=== PATIENT | female | born 1990 | race Hispanic/Latino ===

== ENCOUNTER 2022-04-18 15:10 | Emergency (ER) | payer SELFPAY ==
[2022-04-18 15:58] LABS: Absolute Lymphocytes (CBC) 1.3 K/uL (0.7-4.9); Hematocrit 37.3 % (36.0-45.0); Lymphocytes % 18.2 % (15.3-44.8); MCV 90.5 fL (80-100); RBC Red Blood Cell Count 4.12 M/uL (3.86-4.86)
[2022-04-18 16:19] LABS: BUN Blood Urea Nitrogen 9 mg/dL (7-18); Bicarbonate 24 mmol/L (21-32); Glomerular Filtration Rate 104 ml/min (=/>90); Glucose Level 81 mg/dL (74-106); Potassium 2.9 mmol/L (3.5-5.1); Sodium Level 138 mmol/L (136-145); Troponin High Sensitivity < 3.0 pg/mL (<58.9)
--- NOTE | 2022-04-18 16:53 | RAD REPORT ---
EXAM DESCRIPTION: Eve Single View04/18/2022 4:30 pm CLINICAL HISTORY: Palpitations COMPARISON: none FINDINGS: The lungs appear clear of acute infiltrate. The heart is normal size IMPRESSION: No acute abnormalities displayed
[2022-04-18] MEDS ORDERED: POTASSIUM CL SA 10 MEQ TAB PO ONE (17:11)
[2022-04-18] MEDS ORDERED: POTASSIUM 25 MEQ EFFERV TAB ONE (17:12)
--- NOTE | 2022-04-18 18:40 | EDPHYS ---
Physician Documentation [facility] Name: Benita Cooper Age: 31 yrs Sex: Female : 1990 Arrival Date: 04/18/2022 Time: 15:11 Bed 4 Private MD: ED Physician Shakeel Weir HPI: 04/18 15:42 This 31 yrs old Female presents to ER via Ambulatory with complaints of rapid ms3 heart rate, shaky, Near Syncope. 15:42 The patient has experienced near-syncope. Onset: The symptoms/episode began/occurred ms3 acutely, 30 minute(s) ago. Duration: This was a single episode. Associated injury: The patient did not suffer any apparent associated injury. Associated signs and symptoms: Pertinent positives: shortness of breath, tingling. Current symptoms: shortness of breath, chest pain. 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 - Social history:: Smoking status: Patient denies any tobacco usage or history of. ROS: 15:42 Constitutional: Negative for fever, and chills. ENT: Negative for injury, pain, and ms3 discharge, Neck: Negative for injury, pain, and swelling. 15:42 Abdomen/GI: Negative for abdominal pain, nausea, vomiting, diarrhea, and constipation, MS/Extremity: Negative for injury and deformity, Skin: Negative for injury, rash, and discoloration, Neuro: Negative for headache, weakness, numbness, tingling. Psych: Negative for depression, anxiety, suicide ideation, homicidal ideation, and hallucinations. 15:42 Cardiovascular: Positive for chest pain. 15:42 Respiratory: Positive for shortness of breath. 15:42 All other systems are negative. Exam: 15:41 ECG was reviewed by the Attending Physician. ms3 15:42 Constitutional: This is a well developed, well nourished patient who is awake, alert, ms3 and in no acute distress. Head/Face: Normocephalic, atraumatic. Eyes: Pupils equal round and reactive to light, extra-ocular motions intact. Lids and lashes normal. Conjunctiva and sclera are non-icteric and not injected. Periorbital areas with no swelling, redness, or edema. Neck: Trachea midline, no cervical lymphadenopathy. Supple, full range of motion without nuchal rigidity, or vertebral point tenderness. No Meningismus. Chest/axilla: Normal chest wall appearance and motion. Nontender with no deformity. Respiratory: Lungs have equal breath sounds bilaterally, clear to auscultation and percussion. No rales, rhonchi or wheezes noted. No increased work of breathing, no retractions or nasal flaring. Abdomen/GI: Soft, non-tender, with normal bowel sounds. No distension or tympany. No guarding or rebound. No evidence of tenderness throughout. Skin: Warm, dry with normal turgor. Normal color with no rashes, no lesions, and no evidence of cellulitis. MS/ Extremity: Pulses equal, no cyanosis. Neurovascular intact. Full, normal range of motion. Neuro: Awake and alert, GCS 15, oriented to person, place, time, and situation. Cranial nerves II-XII grossly intact. Motor strength 5/5 in all extremities. Sensory grossly intact. Cerebellar exam normal. Normal gait. Psych: Awake, alert, with orientation to person, place and time. Behavior, mood, and affect are within normal limits. 15:42 Cardiovascular: Rate: tachycardic, Rhythm: regular, Pulses: no pulse deficits are appreciated, Heart sounds: normal, Edema: is not appreciated. Vital Signs: 15:15 BP 110 / 93; Pulse 108; Resp 18 S; Temp 100.8(O); Pulse Ox 99% on R/A; Weight 86 kg aa5 (R); Height 5 ft. 0 in. (152.40 cm) (R); 15:20 BP 110 / 93 Supine; Pulse 104; Resp 16 S; Temp 100.8(T); Pulse Ox 99% on R/A; ha1 17:13 BP 115 / 81; Pulse 87; Resp 16 S; Temp 99.9(O); Pulse Ox 99% on R/A; ha1 18:00 BP 120 / 76; Pulse 85 LA; Resp 16; Temp 99.8(O); Pulse Ox 100% on R/A; ha1 15:15 Body Mass Index 37.03 (86.00 kg, 152.40 cm) aa5 MDM: 15:29 Patient medically screened. ms3 18:52 Differential Diagnosis: cardiac arrhythmia, COVID vs Flu vs SVT. Data reviewed: vital ms3 signs, nurses notes, lab test result(s), EKG, radiologic studies, and as a result, I will discharge patient. Data interpreted: senior cytogenetics laboratory director: rate is 93 beats/min, rhythm is normal sinus rhythm, regular, with no ectopy, Interpretation: normal rate, normal rhythm, Pulse oximetry: on room air is 100 %. Interpretation: normal. Counseling: I had a detailed discussion with the patient and/or guardian regarding: the historical points, exam findings, and any diagnostic results supporting the discharge/admit diagnosis, lab results, radiology results, the need for outpatient follow up, to return to the emergency department if symptoms worsen or persist or if there are any questions or concerns that arise at home. ED course: Discussed chest x-ray, labs, EKG, physical exam findings with patient. Patient to follow-up with primary care physician in 2 to 3 days. Patient understands and agrees with plan. All questions were answered. Return precautions discussed include worsening symptoms, or any other concerns. On reevaluation patient is improved, alert and oriented x4, no apparent distress, nontoxic, ambulatory in emergency department.. 04/18 15:29 Order name: Basic Metabolic Panel; Complete Time: 17:02 ms3 04/18 15:29 Order name: CBC with Diff; Complete Time: 17:02 ms3 04/18 15:29 Order name: D-Dimer; Complete Time: 17:02 ms3 04/18 15:29 Order name: Troponin HS; Complete Time: 17:02 ms3 04/18 16:04 Order name: Flu; Complete Time: 17:02 ha1 04/18 16:04 Order name: COVID-19 SARS RT PCR (Document "Date of Onset" if Symptomatic); Complete ha1 Time: 17:53 04/18 15:29 Order name: XRAY Chest (1 view); Complete Time: 17:02 ms3 04/18 15:29 Order name: EKG; Complete Time: 15:30 ms3 04/18 15:29 Order name: Cardiac monitoring; Complete Time: 15:41 ms3 04/18 15:29 Order name: EKG - Nurse/Tech; Complete Time: 15:40 ms3 04/18 15:29 Order name: IV Saline Lock; Complete Time: 15:51 ms3 07 15:29 Order name: Labs collected and sent; Complete Time: 15:52 ms3 04/18 15:29 Order name: O2 Per Protocol; Complete Time: 15:52 ms3 04/18 15:29 Order name: O2 Sat Monitoring; Complete Time: 15:52 ms3 EC:41 Rate is 116 beats/min. Rhythm is regular. QRS [place] is Normal. MI interval is normal. QT ms3 interval is normal. Clinical impression: Sinus tachycardia. Interpreted by me. Reviewed by me. Administered Medications: 17:13 Drug: Potassium Chloride 40 mEq Route: PO; aa5 19:05 Follow up: Response: No adverse reaction ha1 17:13 Drug: Potassium Effervescent Tablet 25 mEq Route: PO; aa5 19:05 Follow up: Response: No adverse reaction ha1 Disposition Summary: 04/18/22 18:40 Discharge Ordered Location: Home ms3 Problem: new ms3 Symptoms: are unchanged ms3 Condition: Stable ms3 Diagnosis - Hypokalemia ms3 - Fever, unspecified ms3 - SARS-associated coronavirus as the cause of diseases classified elsewhere ms3 Followup: ms3 - With: - When: 2 - 3 days - Reason: Re-evaluation by your physician Discharge Instructions: - Discharge Summary Sheet ms3 - Fever, Adult ms3 - Hypokalemia ms3 Forms: - Medication Reconciliation Form ms3 - Thank You Letter ms3 - Antibiotic Education ms3 - Prescription Opioid Use ms3 Signatures: Dispatcher [employer] Sierra Torres, RN RN aa5 Shakeel Weir DO DO ms3 Heather Chandler RN ha1
--- NOTE | 2022-04-18 18:40 | ER ---
Nurse's Notes [facility] Name: Benita Cooper Age: 31 yrs Sex: Female : 1990 Arrival Date: 04/18/2022 Time: 15:11 Bed 4 Private MD: Diagnosis: Hypokalemia;Fever, unspecified;SARS-associated coronavirus as the cause of diseases classified elsewhere Presentation: 04/18 15:15 Chief complaint: Patient states: heart palpitations, SOB, left sided chest pain with aa5 left arm tingling that began 30-40 minutes ago. 15:15 Coronavirus screen: shortness of breath. Ebola Screen: No symptoms or risks identified aa5 at this time. Initial Sepsis Screen: Does the patient meet any 2 criteria? HR > 90 bpm. Does the patient have a suspected source of infection? No. Patient's initial sepsis screen is negative. Risk Assessment: Do you want to hurt yourself or someone else? Patient reports no desire to harm self or others. Onset of symptoms was April 18, 2022. 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 - Social history:: Smoking status: Patient denies any tobacco usage or history of. Screenin:20 Abuse screen: Denies threats or abuse. Nutritional screening: No deficits noted. ha1 Tuberculosis screening: No symptoms or risk factors identified. Fall Risk None identified. Assessment: 15:20 General: Appears comfortable, Behavior is calm, Reports chills for 12-24 hours, fever ha1 for 12-24 hours. 15:20 Pain: Denies pain. Complains of pain in anterior aspect of left upper chest Pain ha1 radiates to left arm Pain currently is 7 out of 10 on a pain scale. Quality of pain is described as pressure, squeezing, Pain began gradually, gets worst when walking Is intermittent, Alleviated by walking Aggravated by sitting Noted to be Also complains of decreased appetite, shortness of breath. 15:20 Neuro: Level of Consciousness is awake, alert, obeys commands, Oriented to person, ha1 place, time, situation, Intern Architect are equal bilaterally Moves all extremities. Full function Gait is steady, Speech is normal, Facial symmetry appears normal, Pupils are PERRLA, Reports. 15:20 Cardiovascular: Heart tones S1 S2 present Capillary refill < 3 seconds Patient's skin ha1 is warm and dry. Pulses are all present. Rhythm is sinus rhythm Chest pain is located in anterior. 15:20 Respiratory: Airway is patent Breath sounds are clear bilaterally. Onset: The ha1 symptoms/episode began/occurred the patient has mild shortness of breath. GI: No signs and/or symptoms were reported involving the gastrointestinal system. 15:20 : No signs and/or symptoms were reported regarding the genitourinary system. ha1 15:20 EENT: No signs and/or symptoms were reported regarding the EENT system. Derm: Skin is ha1 intact, is healthy with good turgor, Skin is dry, Skin is pink, warm \T\ dry. Reports tingling, at left arm. Musculoskeletal: Capillary refill < 3 seconds, Range of motion: intact in all extremities, 16:20 Reassessment: Patient and/or family updated on plan of care and expected duration. Pain ha1 level reassessed. Patient is alert, oriented x 3, equal unlabored respirations, skin warm/dry/pink. Patient denies pain at this time. 17:13 Reassessment: Patient is alert, oriented x 3, equal unlabored respirations, skin aa5 warm/dry/pink. 19:05 Reassessment: Patient is alert, oriented x 3, equal unlabored respirations, skin ha1 warm/dry/pink. Vital Signs: 15:15 BP 110 / 93; Pulse 108; Resp 18 S; Temp 100.8(O); Pulse Ox 99% on R/A; Weight 86 kg aa5 (R); Height 5 ft. 0 in. (152.40 cm) (R); 15:20 BP 110 / 93 Supine; Pulse 104; Resp 16 S; Temp 100.8(T); Pulse Ox 99% on R/A; ha1 17:13 BP 115 / 81; Pulse 87; Resp 16 S; Temp 99.9(O); Pulse Ox 99% on R/A; ha1 18:00 BP 120 / 76; Pulse 85 LA; Resp 16; Temp 99.8(O); Pulse Ox 100% on R/A; ha1 15:15 Body Mass Index 37.03 (86.00 kg, 152.40 cm) aa5 ED Course: 15:11 Patient arrived in ED. am2 15:15 Arm band placed on Patient placed in an exam room, on a stretcher. aa5 15:16 Shakeel Weir DO is Attending Physician. ms3 15:20 Patient has correct armband on for positive identification. Placed in gown. Bed in low ha1 position. Call light in reach. Side rails up X2. 15:26 Triage completed. aa5 15:26 EKG done, by ED staff, reviewed by Shakeel Weir DO. 3 15:35 No provider procedures requiring assistance completed. Initial lab(s) drawn, by az, ha1 sent to lab. Inserted saline lock: 20 gauge in right antecubital area, using aseptic technique. Blood collected. 15:51 Heather Chandler RN is Primary Nurse. ha1 16:32 XRAY Chest (1 view) In Process Unspecified. EDMS 18:40 Juan Murdock DO is Referral Physician. ms3 19:02 IV discontinued, intact, bleeding controlled, No redness/swelling at site. Pressure ha1 dressing applied. Administered Medications: 17:13 Drug: Potassium Chloride 40 mEq Route: PO; aa5 19:05 Follow up: Response: No adverse reaction ha1 17:13 Drug: Potassium Effervescent Tablet 25 mEq Route: PO; aa5 19:05 Follow up: Response: No adverse reaction ha1 Medication: 19:05 VIS not applicable for this client. ha1 Outcome: 18:40 Discharge ordered by . ms3 19:05 Patient left the ED. ha1 19:05 Discharged to home ambulatory. ha1 19:05 Condition: stable 19:05 Discharge instructions given to patient, Instructed on discharge instructions, follow up and referral plans. Demonstrated understanding of instructions, follow-up care. Signatures: Dispatcher [employer] EDMS Sierra Morillo RN RN aa5 Jossie Morrissey am2 Giulia Camacho 3 Shakeel Weir DO DO ms3 Heather Chandler RN RN [facility] Corrections: (The following items were deleted from the chart) 15:27 15:15 Initial Sepsis Screen: Does the patient meet any 2 criteria? No. Patient's aa5 initial sepsis screen is negative. Does the patient have a suspected source of infection? No. Patient's initial sepsis screen is negative. aa5 15:57 15:15 Pulse 108bpm; Resp 18bpm; Spontaneous; Pulse Ox 99% RA; aa5 aa5 16:42 16:29 Neuro: Level of Consciousness is awake, alert, obeys commands, Oriented to ha1 person, place, time, situation, Intern Architect are equal bilaterally Moves all extremities. Full function Gait is steady, Speech is normal, Facial symmetry appears normal, Pupils are PERRLA, Reports ha1 17:44 15:20 Pain: Denies pain. ha1 ha1 18:37 17:13 BP 115 / 81; Pulse 87bpm; Resp 16bpm; Spontaneous; Pulse Ox 99% RA; Temp 99.9F ha1 Oral; aa5 19:13 19:11 Patient left the ED. ha1 ha1 19:14 15:20 BP 115 / 81; Pulse 87bpm; Resp 16bpm; Spontaneous; Pulse Ox 99% RA; Temp 99.9F ha1 Oral; ha1 19:26 19:25 Response: No adverse reaction ha1 ha1
[2022-04-18 19:15] VITALS: O2SAT 99
[2022-04-18 19:18] VITALS: BP 115/81; TEMP 99.9
--- NOTE | 2022-04-21 13:55 | EKG ---
Test Date: 2022-04-18 Test Time: 15:21:56 Church Musician: PHAN MEASUREMENT RESULTS: Intervals: Rate: 116 MD: 160 QRSD: 80 QT: 322 QTc: 447 [place]: P: 62 MD: 160 QRS: 29 T: 57 INTERPRETIVE STATEMENTS: Sinus tachycardia Otherwise normal ECG No previous ECG available for comparison Electronically Signed On 04-21-22 13:48:47 CDT by Ralph Shaw
== END 2022-04-18 19:11 | disposition home or self-care (01) ==
LOC: ER 15:10
DX: U07.1 COVID-19 (principal); E87.6 Hypokalemia
CPT/HCPCS: 36415; 71045; 80048; 84484; 85025; 85379; 87804; 93005; U0003

== ENCOUNTER 2022-05-16 06:56 | Emergency (ER) | payer SELFPAY ==
[2022-05-16 07:42] LABS: Hematocrit 36.9 % (36.0-45.0); Lymphocytes % 28.8 % (15.3-44.8); MCV 90.6 fL (80-100); RBC Red Blood Cell Count 4.07 M/uL (3.86-4.86)
[2022-05-16 07:59] LABS: BUN Blood Urea Nitrogen 17 mg/dL (7-18); Bicarbonate 25 mmol/L (21-32); Glomerular Filtration Rate 109 ml/min (=/>90); Glucose Level 112 mg/dL (74-106); Potassium 3.6 mmol/L (3.5-5.1); Sodium Level 140 mmol/L (136-145)
[2022-05-16 08:03] LABS: Troponin High Sensitivity < 3.0 pg/mL (<58.9)
--- NOTE | 2022-05-16 08:28 | RAD REPORT ---
EXAM DESCRIPTION: RAD - Chest Single View - 05/16/2022 7:44 am CLINICAL HISTORY: CHEST PAIN Chest pain. COMPARISON: Chest Single View dated 04/18/2022 FINDINGS: Portable technique limits examination quality. The lungs are grossly clear. The heart is normal in size. No displaced fractures. IMPRESSION: No acute intrathoracic process suspected.
[2022-05-16] MEDS ORDERED: METOPROLOL TAR 25 MG TAB ONE (09:45)
--- NOTE | 2022-05-16 09:53 | ER ---
Nurse's Notes [facility] Name: Benita Cooper Age: 31 yrs Sex: Female : 1990 Arrival Date: 05/16/2022 Time: 06:59 Bed 8 Private MD: Diagnosis: Palpitations Presentation: 05/16 07:10 Chief complaint: Patient states: she has been having chest pain since ThursdayMay 123 2021. However patient states that yesterday the pain got worse, and she feels like her heart rate is going up and down when she has the pain. As well as she reports Nausea and shortness of breath. Coronavirus screen: At this time, the client does not indicate any symptoms associated with coronavirus-19. Ebola Screen: No symptoms or risks identified at this time. Initial Sepsis Screen: Does the patient meet any 2 criteria? No. Patient's initial sepsis screen is negative. Does the patient have a suspected source of infection? No. Patient's initial sepsis screen is negative. Risk Assessment: Do you want to hurt yourself or someone else? Patient reports no desire to harm self or others. Onset of symptoms was May 12, 2022. 07:10 Method Of Arrival: Ambulatory ap3 07:10 Acuity: GEO 2 ap3 Triage Assessment: 07:12 General: Appears uncomfortable, Behavior is calm, cooperative, appropriate for age. ap3 Pain: Complains of pain in anterior aspect of left upper chest Pain does not radiate. Pain currently is 5 out of 10 on a pain scale. at worst was 10 out of 10 on a pain scale. Quality of pain is described as heavy, pressure, Pain began gradually, 2-3 days ago. Neuro: Level of Consciousness is awake, alert, obeys commands, Oriented to person, place, time, situation, Appropriate for age Gait is steady, Speech is normal. Cardiovascular: Reports chest pain, nausea. Respiratory: Airway is patent Respiratory effort is even, unlabored, Respiratory pattern is regular, symmetrical. GI: Reports nausea. 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 - Social history:: Smoking status: Patient denies any tobacco usage or history of. Screenin:14 Abuse screen: Denies threats or abuse. Nutritional screening: No deficits noted. ap3 Tuberculosis screening: No symptoms or risk factors identified. 10:12 Fall Risk None identified. jg9 Assessment: 07:13 General: Appears in no apparent distress. uncomfortable, Behavior is cooperative, tp1 anxious. Pain: Complains of pain in chest Pain does not radiate. Pain currently is 5 out of 10 on a pain scale. at worst was 10 out of 10 on a pain scale. Quality of pain is described as crushing, Pain began Thursday04/11/22. Neuro: Level of Consciousness is awake, alert, obeys commands, Oriented to person, place, time, situation, Denies blurred vision headache. Cardiovascular: Heart tones S1 S2 present Capillary refill < 3 seconds Patient's skin is warm and dry. Respiratory: Reports shortness of breath since Thursday04/11/22 with chest pain Airway is patent Respiratory effort is even, unlabored. GI: Reports nausea, vomiting, Patient currently denies diarrhea. : No signs and/or symptoms were reported regarding the genitourinary system. EENT: No signs and/or symptoms were reported regarding the EENT system. Derm: Skin is pink, warm \T\ dry. Musculoskeletal: Circulation, motion, and sensation intact. 08:18 Reassessment: Patient appears in no apparent distress at this time. No changes from [facility] previously documented assessment. Patient and/or family updated on plan of care and expected duration. Pain level reassessed. Patient is alert, oriented x 3, equal unlabored respirations, skin warm/dry/pink. states pain has decreased, rates pain 3/10. 08:55 Reassessment: states she feels like her heart rate is increasing. Resting calmly in 1 bed, no signs of distress noted, respirations even and unlabored, heart rate 80. reports chest pain /10. 09:43 Reassessment: Patient appears in no apparent distress at this time. Patient and/or tp1 family updated on plan of care and expected duration. Pain level reassessed. Patient is alert, oriented x 3, equal unlabored respirations, skin warm/dry/pink. states feeling much better, rates chest pain 1/10, denies SOB. Vital Signs: 07:10 BP 131 / 83; Pulse 78; Resp 15; Temp 98.4; Pulse Ox 100% ; Weight 86.18 kg; Height 5 ap3 ft. 3 in. (160.02 cm); Pain 5/10; 07:19 BP 131 / 83; Pulse 68; Resp 17; Temp 98.4; Pulse Ox 100% on R/A; Pain 5/10; tp1 08:00 BP 114 / 66; Pulse 62; Resp 17; Pulse Ox 100% ; tp1 09:00 BP 144 / 90; Pulse 71; Pulse Ox 100% on R/A; jg9 09:43 BP 146 / 52; Pulse 67; Resp 17; Pulse Ox 98% on R/A; tp1 07:10 Body Mass Index 33.66 (86.18 kg, 160.02 cm) ap3 ED Course: 06:59 Patient arrived in ED. ja2 07:04 Ken Meier, RN is Primary Nurse. jb4 07:05 Primary Nurse role handed off by Ken Meier, RN vg1 07:05 Mary Tinajero, RN is Primary Nurse. vg1 07:12 Hector Lockhart MD is Attending Physician. kdr 07:12 Triage completed. ap3 07:13 Primary Nurse role handed off by Mary Tinajero, BACILIO tp1 07:13 Dianne Nuñez, RN is Primary Nurse. tp1 07:14 Arm band placed on right wrist. ap3 07:14 Patient has correct armband on for positive identification. Placed in gown. Call light ap3 in reach. Side rails up X 1. manager monitoring on. Pulse ox on. NIBP on. 07:14 EKG done, by in tube conversion technician. ap3 07:16 Patient maintains SpO2 saturation greater than 95% on room air. ap3 07:28 Inserted saline lock: 20 gauge in right antecubital area, using aseptic technique. tp1 Blood collected. 07:46 XRAY Chest (1 view) In Process Unspecified. EDMS 08:47 Initial lab(s) drawn, Repeat lab(s) drawn. sent to lab. tp1 10:13 No provider procedures requiring assistance completed. jg9 10:13 IV discontinued. jg9 Administered Medications: 09:39 Drug: Lopressor (metoprolol TARTRATE)) 25 mg Route: PO; tp1 10:00 Follow up: Response: No adverse reaction; Blood pressure is lowered jg9 Medication: 07:19 VIS not applicable for this client. tp1 Outcome: 09:52 Discharge ordered by . kdr 10:13 Discharged to home ambulatory. jg9 10:13 Condition: stable 10:13 Discharge instructions given to patient, Instructed on discharge instructions, follow up and referral plans. Demonstrated understanding of instructions, follow-up care, Prescriptions given X 1. 10:14 Patient left the ED. jg9 Signatures: Dispatcher [employer] EDMS Hector Lockhart MD MD kdr Ken Meier, RN RN [email or web address] Jossie Scott, RN RN [email or web address] Mary Tinajero, RN RN vg1 Dorie Wong Tiffany RN RN tp1 Dulce Machado RN RN jg9 Corrections: (The following items were deleted from the chart) 09:02 08:58 Reassessment: states she feels like her heart rate is increasing. Resting calmly tp1 in bed, no signs of distress noted, respirations even and unlabored, heart rate 80. tp1 09:03 08:55 Reassessment: states she feels like her heart rate is increasing. Resting calmly tp1 in bed, no signs of distress noted, respirations even and unlabored, heart rate 80. tp1 10:14 10:00 BP 146 / 52; Pulse 68bpm; Resp 18bpm; Spontaneous; Pulse Ox 100% RA; jg9 jg9
--- NOTE | 2022-05-16 09:53 | EDPHYS ---
Physician Documentation [facility] Name: Benita Cooper Age: 31 yrs Sex: Female : 1990 Arrival Date: 05/16/2022 Time: 06:59 Bed 8 Private MD: ED Physician Hector Lockhart HPI: 05/16 07:50 This 31 yrs old Female presents to ER via Ambulatory with complaints of Chest kdr Pain. 07:50 This 31 yrs old Female presents to ER via Ambulatory with complaints of Chest kdr Pain \T\ palpitations. 07:50 The patient or guardian reports chest pain that is located primarily in the anterior kdr chest wall, chest diffusely. The pain does not radiate. Associated signs and symptoms: Pertinent positives: nausea, Pertinent negatives: abdominal pain, diaphoresis, dizziness, headache, lightheadedness, palpitations, recent travel, shortness of breath, vomiting. The chest pain is described as aching, dull, a pressure. Duration: The patient or guardian reports multiple episodes, that are intermittent, that wax and wane, with no pattern. Modifying factors: The symptoms are alleviated by nothing. the symptoms are aggravated by nothing. Severity of pain: At its worst the pain was mild. The patient has not experienced similar symptoms in the past. The patient has not recently seen a physician. [employer] WORKER: 07:14 LMP 05/06/2022 ap3 Historical: - Allergies: 07:12 No Known Allergies; ap3 - Home Meds: 07:12 None [Active]; ap3 - PMHx: 07:12 None; ap3 - PSHx: 07:12 section; ap3 - Immunization history:: Client reports having NOT received the Covid vaccine. - Social history:: Smoking status: Patient denies any tobacco usage or history of. ROS: 07:50 Constitutional: Negative for fever, chills, and weight loss, Eyes: Negative for injury, kdr pain, redness, and discharge, ENT: Negative for injury, pain, and discharge, Neck: Negative for injury, pain, and swelling, Respiratory: Negative for shortness of breath, cough, wheezing, and pleuritic chest pain, Abdomen/GI: Negative for abdominal pain, nausea, vomiting, diarrhea, and constipation, Back: Negative for injury and pain, : Negative for injury, bleeding, discharge, and swelling, MS/Extremity: Negative for injury and deformity, Skin: Negative for injury, rash, and discoloration, Neuro: Negative for headache, weakness, numbness, tingling, and seizure activity. Psych: Negative for depression, anxiety, suicide ideation, homicidal ideation, and hallucinations, Allergy/Immunology: Negative for hives, rash, and allergies, Endocrine: Negative for neck swelling, polydipsia, polyuria, polyphagia, and marked weight changes, Hematologic/Lymphatic: Negative for swollen nodes, abnormal bleeding, and unusual bruising. 07:50 Cardiovascular: Positive for chest pain, palpitations, Negative for edema, orthopnea, paroxysmal nocturnal dyspnea. Exam: 07:32 ECG was reviewed by the Attending Physician. kdr 07:50 Constitutional: This is a well developed, well nourished patient who is awake, alert, kdr and in no acute distress. Head/Face: Normocephalic, atraumatic. Eyes: Pupils equal round and reactive to light, extra-ocular motions intact. Lids and lashes normal. Conjunctiva and sclera are non-icteric and not injected. Cornea within normal limits. Periorbital areas with no swelling, redness, or edema. Neck: Trachea midline, no thyromegaly or masses palpated, and no cervical lymphadenopathy. Supple, full range of motion without nuchal rigidity, or vertebral point tenderness. No Meningismus. Chest/axilla: Normal chest wall appearance and motion. Nontender with no deformity. No lesions are appreciated. Cardiovascular: Regular rate and rhythm with a normal S1 and S2. No gallops, murmurs, or rubs. Normal PMI, no JVD. No pulse deficits. Respiratory: Lungs have equal breath sounds bilaterally, clear to auscultation and percussion. No rales, rhonchi or wheezes noted. No increased work of breathing, no retractions or nasal flaring. Abdomen/GI: Soft, non-tender, with normal bowel sounds. No distension or tympany. No guarding or rebound. No evidence of tenderness throughout. Back: No spinal tenderness. No costovertebral tenderness. Full range of motion. Skin: Warm, dry with normal turgor. Normal color with no rashes, no lesions, and no evidence of cellulitis. MS/ Extremity: Pulses equal, no cyanosis. Neurovascular intact. Full, normal range of motion. Neuro: Awake and alert, GCS 15, oriented to person, place, time, and situation. Cranial nerves II-XII grossly intact. Motor strength 5/5 in all extremities. Sensory grossly intact. Cerebellar exam normal. Normal gait. Psych: Awake, alert, with orientation to person, place and time. Behavior, mood, and affect are within normal limits. Vital Signs: 07:10 BP 131 / 83; Pulse 78; Resp 15; Temp 98.4; Pulse Ox 100% ; Weight 86.18 kg; Height 5 ap3 ft. 3 in. (160.02 cm); Pain 5/10; 07:19 BP 131 / 83; Pulse 68; Resp 17; Temp 98.4; Pulse Ox 100% on R/A; Pain 5/10; tp1 08:00 BP 114 / 66; Pulse 62; Resp 17; Pulse Ox 100% ; tp1 09:00 BP 144 / 90; Pulse 71; Pulse Ox 100% on R/A; jg9 09:43 BP 146 / 52; Pulse 67; Resp 17; Pulse Ox 98% on R/A; tp1 07:10 Body Mass Index 33.66 (86.18 kg, 160.02 cm) ap3 MDM: 07:50 Data reviewed: vital signs, nurses notes, lab test result(s), EKG, radiologic studies. kdr Counseling: I had a detailed discussion with the patient and/or guardian regarding: the historical points, exam findings, and any diagnostic results supporting the discharge/admit diagnosis, lab results, radiology results. 09:52 Patient medically screened. kdr 05/16 07:19 Order name: Basic Metabolic Panel; Complete Time: 08:40 kdr 05/16 07:19 Order name: CBC with Diff kdr 05/16 07:19 Order name: Troponin HS; Complete Time: 08:40 kdr 05/16 07:19 Order name: XRAY Chest (1 view); Complete Time: 08:40 kdr 05/16 08:38 Order name: Troponin High Sensitivity; Complete Time: 09:50 kdr 05/16 07:19 Order name: EKG; Complete Time: 07:20 kdr 05/16 07:19 Order name: Cardiac monitoring; Complete Time: 07:25 kdr 05/16 07:19 Order name: EKG - Nurse/Tech; Complete Time: 07:25 kdr 05/16 07:19 Order name: IV Saline Lock; Complete Time: kdr 05/16 07:19 Order name: Labs collected and sent; Complete Time: kdr EC:32 Rate is 68 beats/min. Rhythm is irregular, Sinus arrythmia with PACs. IL interval is kdr normal. QRS interval is normal. QT interval is normal. Clinical impression: NSR w/ Non-specific ST/T Changes. Administered Medications: 09:39 Drug: Lopressor (metoprolol TARTRATE)) 25 mg Route: PO; tp1 10:00 Follow up: Response: No adverse reaction; Blood pressure is lowered [id number] Disposition Summary: 05/16/22 09:52 Discharge Ordered Location: Home kdr Problem: new kdr Symptoms: have improved kdr Condition: Stable kdr Diagnosis - Palpitations kdr Followup: kdr - With: Private Physician - When: 2 - 3 days - Reason: If symptoms return, Further diagnostic work-up, Recheck today's complaints, Continuance of care, Re-evaluation by your physician Discharge Instructions: - Discharge Summary Sheet kdr - Palpitations, [id number] kdr Forms: - Medication Reconciliation Form kdr - Thank You Letter kdr - Work release form eb Prescriptions: - metoprolol tartrate 25 mg Oral tablet - take 1 tablet by ORAL route once daily; 5 tablet; Refills: 0, Product Selection kdr Permitted Signatures: Dispatcher [employer] Hector Liu MD MD kdr Jossie Scott RN RN ap3 Dianne Nuñez RN RN tp1 Dulce Machado RN jg9
[2022-05-16 10:33] VITALS: TEMP 98.4
[2022-05-16 10:56] LABS: Platelet Estimate DECR; White Blood Cell Scan OK (OK)
[2022-05-16 10:57] LABS: Blood Morphology Comment NOT SEEN (NOT SEEN); Platelets, Giant FEW PRESENT
[2022-05-16 10:58] VITALS: BP 146/52; O2SAT 98
--- NOTE | 2022-05-16 15:05 | EKG ---
Test Date: 2022-05-16 Test Time: 07:03:19 Braiding Machine Operator: FREDY MEASUREMENT RESULTS: Intervals: Rate: 68 TN: 158 QRSD: 80 QT: 384 QTc: 408 [place]: P: 59 TN: 158 QRS: 55 T: 55 INTERPRETIVE STATEMENTS: Normal sinus rhythm with sinus arrhythmia Normal ECG Compared to ECG 04/18/2022 15:21:56 Sinus tachycardia no longer present Electronically Signed On 05-16-22 15:05:18 CDT by Ralph Shaw
== END 2022-05-16 10:14 | disposition home or self-care (01) ==
LOC: ER 06:56
DX: R00.2 Palpitations (principal); R07.89 Other chest pain
CPT/HCPCS: 36415; 71045; 80048; 84484; 85025; 93005; 99285